=== PATIENT | female | born 1950 | race Caucasian/White ===

== ENCOUNTER 2023-12-21 14:33 | Emergency (ER) | payer MEDICARE, OTHER | END 2023-12-21 16:45 | disposition home or self-care (01) | LOC: NAV ERS 14:33 | DX: T67.1XXD Heat syncope, subsequent encounter (principal); E03.9 Hypothyroidism, unspecified; Z79.899 Other long term (current) drug therapy | CPT/HCPCS: 93005; 99284 ==